=== PATIENT | female | born 1960 | race Two or more races ===

== ENCOUNTER 2024-04-21 10:44 | Outpatient (CLI) | payer OTHER | END 2024-04-21 10:59 | disposition home or self-care (01) | LOC: MAMO-SONO 10:44 | DX: D48.5 Neoplasm of uncertain behavior of skin (principal); N63.0 Unspecified lump in unspecified breast; N60.29 Fibroadenosis of unspecified breast; Z12.31 Encounter for screening mammogram for malignant neoplasm of breast ==